=== PATIENT | female | born 1990 | race Caucasian/White ===

== ENCOUNTER 2017-07-02 22:17 | Emergency (ER) | payer OTHER ==
[2017-07-03] MEDS ORDERED: Clindamycin 600 MG IVPREMIX(* 600 MG/50 ML SDV IV ONE (00:28)
[2017-07-03] MEDS ORDERED: NS 0.9% 1000 ML* 1,000 ML IV ONE (00:28)
--- NOTE | 2017-07-03 00:29 | ED ---
Throat Pain/Nasal Congestion - HPI Summary HPI Summary: Pt here w/ Lt sided facial pain/swelling from dental infection. Started Sunday - went to [facility] - treated with Clindamycin 300mg PO TID - she taken 2 DAYS worth now. Feels it's spreading. Intermittent nausea. Fever comes and goes. No trouble breathing or swallowing. No visual change or ocular pain. Has not been using oral anbx rinse. Cannot take NSAID's as she has an allergy to ibuprofen. Has been taking tramadol for pain. - History of Current Complaint Chief Complaint: EDDentalPain Time Seen by Provider: 07/02/17 22:58 Hx Obtained From: Patient - Allergies/Home Medications Allergies/Adverse Reactions: Allergies Allergy/AdvReac Type Severity Reaction Status Date / Time Ibuprofen [From Motrin] Allergy inflamation Verified 07/02/17 22:22 Amoxicillin AdvReac Vomiting Verified 07/03/17 01:07 PMH/Surg Hx/FS Hx/Imm Hx Previously Healthy: Yes Endocrine/Hematology History: Denies: Hx Anticoagulant Therapy, Hx Blood Disorders, Autoimmune Disease Infectious Disease History: No Infectious Disease History: Denies: Traveled Outside the [place] in Last 30 Days - Social History Occupation: Employed Full-time Lives: With Family Alcohol Use: Rare Hx Substance Use: No Substance Use Type: Reports: None Hx Tobacco Use: Yes Smoking Status (MU): Current Some Day Smoker Review of Systems Constitutional: Other - see HPI Positive: Dental Pain - see HPI. Negative: Sore Throat, Ear Ache, Nasal Discharge Cardiovascular: Negative Negative: Palpitations, Chest Pain Respiratory: Negative Negative: Shortness Of Breath Positive: Nausea. Negative: Abdominal Pain, Diarrhea Positive: no symptoms reported Musculoskeletal: Negative Skin: Other - see HPI Neurological: Negative Psychological: Normal All Other Systems Reviewed And Are Negative: Yes Physical Exam Triage Information Reviewed: Yes Vital Signs On Initial Exam: Initial Vitals Temp Pulse Resp BP Pulse Ox 97 F 91 16 159/104 99 07/02/17 22:24 07/02/17 22:24 07/02/17 22:24 07/02/17 22:24 07/02/17 22:24 Vital Signs Reviewed: Yes Appearance: Positive: Pain Distress - mild - sleeping upon entrance to room - Lt side of face w/ mild erythema and edema - eye is not swollen shut; mild blunting of nasolabial fold on Lt, Obese Skin: Positive: Warm, Dry - no vesicles, no skin breakdown Head/Face: Positive: Normal Head/Face Inspection Eyes: Positive: Normal, EOMI, Conjunctiva Clear ENT: Positive: Normal ENT inspection, Hearing grossly normal, Pharynx normal, TMs normal Dental: Positive: Gross Decay/Caries @ - diffuse decay of teeth and malodorous breath - gingiva edematous, erythematous and TTP Neck: Positive: Supple, Nontender, No Lymphadenopathy Respiratory/Lung Sounds: Positive: Clear to Auscultation, Breath Sounds Present. Negative: Stridor Cardiovascular: Positive: Normal, S1, S2 Musculoskeletal: Positive: Normal, Strength/ROM Intact Neurological: Positive: Normal, Sensory/Motor Intact, Alert, Oriented to Person Place, Time, CN Intact II-III Psychiatric: Positive: Normal Diagnostics - Vital Signs Vital Signs Temp Pulse Resp BP Pulse Ox 07/02/17 22:24 97 F 91 16 159/104 99 - Laboratory Lab Statement: Any lab studies that have been ordered have been reviewed, and results considered in the medical decision making process. Re-Evaluation - Re-Evaluation First Eval Change: Improved EENT Course/Dx - Course Course Of Treatment: Pt has only been taking anbx for 2 days - will provide IV anbx to better infiltrate system. Provided IVF as well as she's been complaining of pain w/ eating and not eating/drinking much. Will have her continue clindamycin but also add oral anbx chlorhexadine alternating with saline oral rinses. She may continue tramadol for pain. She does not want to come out of work as she needs the money. Will f/u w/ dentist as planned - scheduled for dental extraction surgery for July 17. Reviewed danger s/ sx of when to return to ED. - Diagnoses Provider Diagnoses: Dental infection, Gingivitis, Facial cellulitis Discharge - Discharge Plan Condition: Stable Disposition: HOME Prescriptions: Chlorhexidine MW 0.12% 473ML* [Peridex Mouth Wash 0.12%] 15 ml MT BID #1 btl Patient Education Materials: Gingivitis (ED), Dental Abscess (ED), Cellulitis ( ED) Referrals: No Primary Care Phys,NOPCP [Primary Care Provider] - Additional Instructions: Complete clindamycin Start chlorhexadine oral antibiotic mouthwash You may use salt water rinses in between to help with pain, swelling Continue tramadol as needed for pain Stay hydrated and nourished with fluids - water, gatorade, broth, cooked eggs, smoothies, etc Follow-up with dentist as directed *If you develop fever, chills, severe headache, vomiting, trouble breathing or swallowing, return to ED
[2017-07-03 02:20] VITALS: BP 142/94
== END 2017-07-03 02:21 | disposition home or self-care (01) ==
LOC: ED 22:17
DX: K04.7 Periapical abscess without sinus (principal); K05.10 Chronic gingivitis, plaque induced; L03.211 Cellulitis of face; F17.200 Nicotine dependence, unspecified, uncomplicated; Z88.1 Allergy status to other antibiotic agents
CPT/HCPCS: 99282

== ENCOUNTER 2018-04-30 13:38 | Emergency (ER) | payer OTHER ==
[2018-04-30 16:33] LABS: ABS Basophils 0 10^3/ul (0-0.2); ABS Eosinophils 0.2 10^3/ul (0-0.6); ABS Lymphocytes 1.3 10^3/ul (1.0-4.8); ABS Monocytes 0.6 10^3/ul (0-0.8); ABS Neutrophils 3.3 10^3/ul (1.5-7.7); ABS Nucleated RBC 0 10^3/ul; Eosinophil % 3.3 % (0-6); Hematocrit 39 % (35-47); Hemoglobin 14.1 g/dl (12.0-16.0); Lymphocyte % 23.7 % (25-47); Mean Corpuscular HGB Conc 36 g/dl (31-36); Mean Corpuscular Hemoglobin 29 pg (27-31); Mean Corpuscular Volume 80 fL (80-97); Mean Platelet Volume 6.3 um3 (7.4-10.4); Nucleated Red Blood Cells % 0.1; Platelet Count 223 10^3/ul (150-450); Red Blood Count 4.94 10^6/ul (4.00-5.40); Red Cell Distribution Width 14 % (10.5-15); White Blood Count 5.3 10^3/ul (3.5-10.8)
[2018-04-30 16:51] LABS: EGFR Non-African American 65.6 (>60)
[2018-04-30] MEDS ORDERED: Acetaminophen TAB* 325 MG PO ONE (17:28)
[2018-04-30] MEDS ORDERED: cloNIDine TAB* 0.1 MG PO ONE (17:32)
--- NOTE | 2018-04-30 18:38 | RAD ---
Indication: Headache, hypertension. Visual spots. Comparison: No relevant prior exams available on the [facility] for comparison. Technique: Noncontrast CT vertex of skull through foramen magnum. Report: The sulci, ventricles, and basal cisterns are normal for age. [place] matter white matter differentiation is preserved without evidence for edema. No intra or extra axial hemorrhage, mass, or fluid collection detected. Unremarkable visualized orbital contents. Incidental small lucencies within the medullary and cortical calvarium most suspicious for fibrous dysplasia. Unremarkable scalp. The visualized paranasal sinuses and mastoid air spaces are clear. IMPRESSION: 1. No acute intracranial process evident. Negative CT of the brain. 2. Incidental small lucencies within the medullary and cortical calvarium most suspicious for fibrous dysplasia.
--- NOTE | 2018-04-30 19:28 | ED ---
Nahum Kumar Simon, scribed for Kyle Stuart on 04/30/18 at 1737 . Hypertension - HPI Summary HPI Summary: This patient is a 27 year old F presenting to [facility] with a chief complaint of hypertension (190/120) since 1000. Pt endorses NEAL, visual changes (started to see red spots), general weakness, and shakiness. Pt denies CP, SOB, abd pain, and edema. She denies using tobacco, drugs, or alcohol, denies PMHx CVAs. Yesterday upped Lopressor dosage from 1 pill a day to 2 a day (25 mg BID now). - History of Current Complaint Chief Complaint: EDHypertension Stated Complaint: HIGH BP/HEADACHE Time Seen by Provider: 04/30/18 17:12 Hx Obtained From: Patient Onset/Duration: Started Hours Ago Timing: Constant Aggravating Factor(s): Nothing Alleviating Factor(s): Nothing Associated Signs & Symptoms: Vision Changes - red spots, Headaches, Weakness - general, Other: - negative SOB, edema, CP, abd pain Related Hx: Similar Episode - yesterday Current Medications: Beta Anthony - lopressin - Allergies/Home Medications Allergies/Adverse Reactions: Allergies Allergy/AdvReac Type Severity Reaction Status Date / Time amoxicillin Allergy Nausea And Verified 04/30/18 14:43 Vomiting ibuprofen Allergy Anaphylatic Verified 04/30/18 14:43 Shock Home Medications: Home Medications Diclofenac Sodium EC TAB* [Voltaren EC TAB*] 50 mg PO TID PRN 04/30/18 [History Confirmed 04/30/18] Levothyroxine TAB* [Synthroid TAB*] 50 mcg PO DAILY 04/30/18 [History Confirmed 04/30/18] Metoprolol Tartrate TAB* [Lopressor TAB*] 50 mg PO BID 04/30/18 [History Confirmed 04/30/18] PMH/Surg Hx/FS Hx/Imm Hx Endocrine/Hematology History: Denies: Hx Anticoagulant Therapy, Hx Blood Disorders Cardiovascular History: Reports: Hx Hypertension Denies: Other Cardiovascular Problems/Disorders Sensory History: Denies: Hx Cataracts, Hx Contacts or Glasses, Hx Legally Blind, Hx Deafness Opthamlomology History: Denies: Hx Contacts or Glasses, Hx Legally Blind EENT History: Denies: Hx Deafness Neurological History: Denies: Hx CVA Infectious Disease History: No Infectious Disease History: Denies: Traveled Outside the [place] in Last 30 Days - Family History Known Family History: Negative: Blood Disorder - Social History Alcohol Use: Rare Hx Substance Use: No Substance Use Type: Reports: None Hx Tobacco Use: Yes Smoking Status (MU): Former Smoker Review of Systems Negative: Fever Positive: Other - vision changes (red spots) Negative: Chest Pain Negative: Shortness Of Breath Negative: Abdominal Pain Negative: Edema Positive: Headache, Weakness All Other Systems Reviewed And Are Negative: Yes Physical Exam - Summary Physical Exam Summary: Appearance: Well appearing, no pain distress Skin: warm, dry, reflects adequate perfusion Head/face: normal Eyes: EOMI, KEV ENT: normal Neck: supple, non-tender Respiratory: CTA, breath sounds present Cardiovascular: RRR, pulses symmetrical Abdomen: non-tender, soft Bowel: present Musculoskeletal: normal, strength/ROM intact Neuro: normal, sensory motor intact, A&Ox3 Triage Information Reviewed: Yes Vital Signs On Initial Exam: Initial Vitals Temp Pulse Resp BP Pulse Ox 97.9 F 84 16 167/109 100 04/30/18 14:38 04/30/18 14:38 04/30/18 14:38 04/30/18 14:38 04/30/18 14:38 Vital Signs Reviewed: Yes Diagnostics - Vital Signs Vital Signs Temp Pulse Resp BP Pulse Ox 04/30/18 17:29 166/111 04/30/18 16:32 97.8 F 84 17 162/105 99 04/30/18 14:38 97.9 F 84 16 167/109 100 - Laboratory Lab Results: Lab Results 04/30/18 04/30/18 Range/Units 16:22 16:22 WBC 5.3 (3.5-10.8) 10^3/ul RBC 4.94 (4.00-5.40) 10^6/ul Hgb 14.1 (12.0-16.0) g/dl Hct 39 (35-47) % MCV 80 (80-97) fL MCH 29 (27-31) pg MCHC 36 (31-36) g/dl RDW 14 (10.5-15) % Plt Count 223 (150-450) 10^3/ul MPV 6.3 L (7.4-10.4) um3 Neut % (Auto) 62.3 (38-83) % Lymph % (Auto) 23.7 L (25-47) % Casey % (Auto) 10.5 H (0-7) % Eos % (Auto) 3.3 (0-6) % Baso % (Auto) 0.2 (0-2) % Absolute Neuts (auto) 3.3 (1.5-7.7) 10^3/ul Absolute Lymphs (auto) 1.3 (1.0-4.8) 10^3/ul Absolute Monos (auto) 0.6 (0-0.8) 10^3/ul Absolute Eos (auto) 0.2 (0-0.6) 10^3/ul Absolute Basos (auto) 0 (0-0.2) 10^3/ul Absolute Nucleated RBC 0 10^3/ul Nucleated RBC % 0.1 Sodium 139 (135-145) mmol/L Potassium 4.0 (3.5-5.0) mmol/L Chloride 104 (101-111) mmol/L Carbon Dioxide 30 (22-32) mmol/L Anion Gap 5 (2-11) mmol/L BUN 10 (6-24) mg/dL Creatinine 1.00 H (0.51-0.95) mg/dL Est GFR ( Amer) 79.3 (>60) Est GFR (Non-Af Amer) 65.6 (>60) BUN/Creatinine Ratio 10.0 (8-20) Glucose 116 H (70-100) mg/dL Calcium 9.7 (8.6-10.3) mg/dL Total Bilirubin 0.70 (0.2-1.0) mg/dL AST 32 (13-39) U/L ALT 49 (7-52) U/L Alkaline Phosphatase 74 (34-104) U/L Total Protein 7.0 (6.4-8.9) g/dL Albumin 4.1 (3.2-5.2) g/dL Globulin 2.9 (2-4) g/dL Albumin/Globulin Ratio 1.4 (1-3) Result Diagrams: 04/30/18 16:22 04/30/18 16:22 Lab Statement: Any lab studies that have been ordered have been reviewed, and results considered in the medical decision making process. Hypertension Course/Dx - Course Course Of Treatment: A 27-year-old F presents to the ED with a CC of ___ for ( time). pertinent positives/negatives/background. A CXR reveals ___. An EKG reveals ___. (add all other imaging/EKG/UA/lab results). In the ED course, pt was given (meds) which (improved or did not). Blood work/UA obtained. - Diagnoses Differential Diagnosis/HQI PQRI: Hypertension, Other - tension headache Provider Diagnoses: Hypertension, Headache Discharge - Sign-Out/Discharge Documenting (check all that apply): Discharge/Admit/Transfer - discharge - Discharge Plan Condition: Stable Disposition: HOME Patient Education Materials: Hypertension (ED), General Headache (ED) Referrals: Joann Calderon MD [Primary Care Provider] - 3 Days Additional Instructions: RETURN TO THE EMERGENCY DEPARTMENT FOR ANY CHANGING OR WORSENING SYMPTOMS. - Billing Disposition and Condition Condition: STABLE Disposition: Home The documentation as recorded by the Nahum petersen Simon accurately reflects the service I personally performed and the decisions made by , Kyle Stuart.
[2018-04-30 19:29] VITALS: BP 144/90
== END 2018-04-30 19:28 | disposition home or self-care (01) ==
LOC: ED 13:38
DX: I10 Essential (primary) hypertension (principal); R51 Headache; Z79.899 Other long term (current) drug therapy; Z87.891 Personal history of nicotine dependence; Z88.3 Allergy status to other anti-infective agents; Z88.6 Allergy status to analgesic agent
CPT/HCPCS: 36415; 70450; 80053; 84484; 84702; 85025; 99283; A9270-GY